=== PATIENT | female | born 1945 | race Caucasian/White ===

== ENCOUNTER 2023-04-17 21:00 | Inpatient (IN) | payer MEDICARE ==
[2023-04-18] MEDS ORDERED: Ipratropium/Albuterol 3 ML NEB NEB PRN (00:57)
[2023-04-18] MEDS ORDERED: Morphine 2 MG/ML VIAL SLOW IVP PRN (00:57)
[2023-04-18] MEDS ORDERED: Ondansetron PF 4 MG/2 ML Vial IVP PRN (00:57)
[2023-04-18 01:32] VITALS: BMI 23.1
[2023-04-18] MEDS: Sodium Chloride 0.9% 1,000 ML IV SCH ×3 (01:53→18:17)
[2023-04-18] MEDS: Acetaminophen 500 MG TAB PO SCH ×5 (01:53→23:56)
[2023-04-18] MEDS: traMADol HCl 50 MG TAB PO SCH ×4 (04:52→21:57)
[2023-04-18 05:03] LABS: #Monocytes 0.5 thou/uL (0.11-0.59); #Neutrophils 7.7 thou/uL (1.40-6.50); %Basophils 0.4 % (0.0-1.0); %Lymphocytes 9.5 % (21.0-51.0); %Monocytes 5.4 % (0.0-10.0); %Neutrophils 84.4 % (42.0-75.0); Hematocrit 38.4 % (36.0-47.0); Hemoglobin 13.2 g/dL (12.0-16.0); Mean Corpuscular HGB CONC 34.4 g/dL (32.0-36.0); Mean Corpuscular Hemoglobin 30.1 pg (27.0-31.0); Mean Corpuscular Volume 87.7 fl (78.0-98.0); Mean Platelet Volume 9.9 fL (7.4-10.4); Platelet Count 147 10x3/uL (130-400); RBC Distribution Width 12.7 % (11.5-14.5); Red Blood Cell (RBC) Count 4.38 mill/uL (4.20-5.40); White Blood Cell (WBC) Count 9.1 10x3/uL (4.8-10.8)
[2023-04-18 05:19] LABS: Anion Gap 14 mmol/L (10-20); BUN (Urea Nitrogen) 10 mg/dL (9.8-20.1); Calc. Creatinine Clearance 58 mL/min (70-130); Calcium 9.4 mg/dL (7.8-10.44); Carbon Dioxide 24 mmol/L (23-31); Chloride 105 mmol/L (98-107); Estimated GFR 82; Glucose 126 mg/dL (83-110); Potassium 3.5 mmol/L (3.5-5.1); Sodium 139 mmol/L (136-145)
[2023-04-18] MEDS ORDERED: CEFAZOLIN 2 GM in Sodium Chloride 0.9% 100 ML IVPB SCH (07:45)
[2023-04-18] MEDS: Polyethylene Glycol 3350 17 GM Packet PO SCH (07:49)
[2023-04-18] MEDS: Senokot S 8.6-50 MG TAB PO SCH ×2 (07:49→21:43)
[2023-04-18] MEDS: Famotidine/PF 20 mg/2ml Vial SLOW IVP SCH ×2 (08:42→21:43)
[2023-04-18] MEDS ORDERED: fentaNYL PF 100 MCG/2 ML SYRINGE ONE ×2 (17:13→18:34)
[2023-04-18] MEDS ORDERED: CEFAZOLIN 2 GM VIAL ONE (17:17)
[2023-04-18] MEDS ORDERED: Sodium Chloride 0.9% 100 ML ONE (17:17)
[2023-04-18] MEDS ORDERED: Esmolol 100 MG/10 ML VIAL ONE (17:23)
[2023-04-18] MEDS ORDERED: Dexamethasone 20 MG/5 ML VIAL ONE (17:23)
[2023-04-18] MEDS ORDERED: Ondansetron PF 4 MG/2 ML Vial ONE (17:23)
[2023-04-18] MEDS ORDERED: PROPOFOL 200 MG/20 ML VIAL ONE (17:23)
[2023-04-18] MEDS ORDERED: Glycopyrrolate 0.2 MG/ML 5 ML SYRINGE ONE (17:23)
[2023-04-18] MEDS ORDERED: ePHEDrine Sulfate 50 MG/10 ML VIAL ONE (17:23)
[2023-04-18] MEDS ORDERED: Lidocaine 1% PF 5 ML VIAL ONE (17:23)
[2023-04-18] MEDS ORDERED: Promethazine HCl 25 MG/ML VIAL IM PRN (18:29)
[2023-04-18] MEDS ORDERED: Ondansetron HCl/PF 4 MG/2 ML Vial IVP PRN (18:29)
[2023-04-18] MEDS: traMADol HCl 50 MG TAB PO PRN (21:44)
[2023-04-18] MEDS: CEFAZOLIN 2 GM in Sodium Chloride 0.9% 100 ML IVPB SCH (21:45)
[2023-04-19] MEDS: Sodium Chloride 0.9% 1,000 ML IV SCH ×3 (01:18→17:23)
[2023-04-19] MEDS: CEFAZOLIN 2 GM in Sodium Chloride 0.9% 100 ML IVPB SCH (05:37)
[2023-04-19] MEDS: traMADol HCl 50 MG TAB PO SCH (05:38)
[2023-04-19] MEDS: Acetaminophen 500 MG TAB PO SCH ×4 (05:39→23:50)
[2023-04-19 08:39] LABS: #Monocytes 0.5 thou/uL (0.11-0.59); #Neutrophils 6.3 thou/uL (1.40-6.50); %Basophils 0.1 % (0.0-1.0); %Lymphocytes 8.3 % (21.0-51.0); %Neutrophils 84.3 % (42.0-75.0); Hematocrit 33.8 % (36.0-47.0); Hemoglobin 11.6 g/dL (12.0-16.0); Mean Corpuscular HGB CONC 34.3 g/dL (32.0-36.0); Mean Corpuscular Hemoglobin 29.9 pg (27.0-31.0); Mean Corpuscular Volume 87.1 fl (78.0-98.0); Mean Platelet Volume 9.7 fL (7.4-10.4); Platelet Count 125 10x3/uL (130-400); RBC Distribution Width 12.9 % (11.5-14.5); Red Blood Cell (RBC) Count 3.88 mill/uL (4.20-5.40); White Blood Cell (WBC) Count 7.4 10x3/uL (4.8-10.8)
[2023-04-19] MEDS: Famotidine/PF 20 mg/2ml Vial SLOW IVP SCH ×2 (10:00→20:30)
[2023-04-19] MEDS: Polyethylene Glycol 3350 17 GM Packet PO SCH (10:00)
[2023-04-19] MEDS: traMADol HCl 50 MG TAB PO PRN (10:00)
[2023-04-19] MEDS: Senokot S 8.6-50 MG TAB PO SCH ×2 (10:00→20:26)
[2023-04-19] MEDS: Ibuprofen 200 MG TAB PO SCH ×2 (15:55→20:28)
[2023-04-20] MEDS: Sodium Chloride 0.9% 1,000 ML IV SCH ×3 (01:03→18:46)
[2023-04-20] MEDS: Ibuprofen 200 MG TAB PO SCH ×3 (05:45→22:13)
[2023-04-20] MEDS: Acetaminophen 500 MG TAB PO SCH ×3 (05:46→18:06)
[2023-04-20] MEDS: Senokot S 8.6-50 MG TAB PO SCH ×2 (09:10→20:24)
[2023-04-20] MEDS: Famotidine/PF 20 mg/2ml Vial SLOW IVP SCH ×2 (09:10→20:25)
[2023-04-20] MEDS: traMADol HCl 50 MG TAB PO PRN ×2 (09:10→20:24)
[2023-04-20] MEDS: Aspirin 81 mg Enteric Coated Tablet PO SCH ×2 (09:11→20:24)
[2023-04-20] MEDS: Polyethylene Glycol 3350 17 GM Packet PO SCH (09:11)
[2023-04-21] MEDS: Acetaminophen 500 MG TAB PO SCH ×4 (02:02→13:42)
[2023-04-21 04:44] VITALS: TEMP 98.1
[2023-04-21] MEDS: Ibuprofen 200 MG TAB PO SCH (06:14)
[2023-04-21] MEDS: Sodium Chloride 0.9% 1,000 ML IV SCH (06:20)
[2023-04-21] MEDS: Aspirin 81 mg Enteric Coated Tablet PO SCH (08:43)
[2023-04-21] MEDS: Famotidine/PF 20 mg/2ml Vial SLOW IVP SCH (08:43)
[2023-04-21] MEDS: Senokot S 8.6-50 MG TAB PO SCH (08:44)
[2023-04-21] MEDS: Polyethylene Glycol 3350 17 GM Packet PO SCH (08:44)
[2023-04-21] MEDS ORDERED: Ibuprofen 200 MG TAB PO PRN (09:15)
[2023-04-21 11:39] VITALS: BP 136/73
[2023-04-21] MEDS ORDERED: Famotidine 20 MG TAB PO SCH (21:00)
== END 2023-04-21 13:50 | DRG 482 ==
LOC: SJJU 04-18 00:39
PROVIDERS: ADMIT Surgery; ATTEND Surgery
PROC: 0QS604Z Reposition Right Upper Femur with Internal Fixation Device, Open Approach (ICD-10-PCS; principal; 2023-04-18)
DX: S72.011A Unspecified intracapsular fracture of right femur, initial encounter for closed fracture (principal); F03.90 Unspecified dementia, unspecified severity, without behavioral disturbance, psychotic disturbance, mood disturbance, and anxiety; K74.60 Unspecified cirrhosis of liver; W19.XXXA Unspecified fall, initial encounter; Y92.000 Kitchen of unspecified non-institutional (private) residence as the place of occurrence of the external cause; Z85.3 Personal history of malignant neoplasm of breast
CPT/HCPCS: 36415; 36416; 80048; 85025; 85610; 85730; 86850; 86900; 86901; 93005; 93010; C1713; J1100; J1650; J2272; J2405; J2704; J3490; J7050; S0028